=== PATIENT | female | born 1985 | race African-American/Black ===

== ENCOUNTER 2021-07-08 10:09 | Emergency (ER) | payer BC ==
[~2021-07-08] VITALS: Ht 175.3 cm; Wt 75.7 kg
--- NOTE | 2021-07-08 10:53 | NUR ---
BIBS FOR BEING DEPRESSED, SI +PLAN TO RUN INTO TRAFFIC. WANTS VOL PSYCH ADMISSION. THE PATIENT IS ALERT AND ORIENTED X3. DENIES PAIN. BREATHING EVEN AND UNLABORED. WILL CONTINUE TO MONITOR. SITTER AT THE BEDSIDE. SAFETY MEASURES TAKEN
[2021-07-08 11:06] LABS: BILIRUBIN,URINE NEGATIVE (NEGATIVE); COLOR,URINE YELLOW (YELLOW); LEUKOCYTE ESTERASE ,URINE NEGATIVE (NEGATIVE); NITRITE, URINE NEGATIVE (NEGATIVE); PROTEIN,URINE NEGATIVE (NEGATIVE); UGLUCOSE NEGATIVE (NEGATIVE); UROBILINOGEN,URINE 0.2 EU/dL (0.2)
[2021-07-08 11:11] LABS: BASOPHILS # (AUTO) 0.1 K/uL (0.0-0.2); BASOPHILS % (AUTO) 0.8 % (0.0-2.0); EOSINOPHILS % (AUTO) 3.2 % (0.0-6.0); HEMATOCRIT 36 % (33-45); HEMOGLOBIN 11.7 g/dL (11.5-14.8); LYMPHOCYTES # (AUTO) 1.8 K/uL (0.8-4.8); LYMPHOCYTES % (AUTO) 22.9 % (20.0-44.0); MEAN CORPUSCULAR HGB CONC 33 g/dl (31.0-36.0); MEAN CORPUSCULAR VOLUME 89 fL (82-100); MONOCYTES # (AUTO) 0.7 K/uL (0.1-1.30); MONOCYTES % (AUTO) 9.2 % (2.0-12.0); NEUTROPHILS % (AUTO) 63.9 % (43.0-81.0); PLATELET COUNT (AUTO) 479 K/uL (150-450); RED BLOOD CELL COUNT(AUTO) 4.04 MIL/uL (4.0-5.2); WHITE BLOOD COUNT (AUTO) 7.8 K/uL (4.3-11.0)
[2021-07-08 11:19] LABS: CALCIUM, SERUM 8.6 mg/dL (8.5-10.1); CARBON DIOXIDE 29 mmol/L (21-32); CHLORIDE 107 mmol/L (98-107); CREATININE 0.9 mg/dL (0.6-1.3); GLUCOSE 72 mg/dL (74-106); POTASSIUM 3.8 mmol/L (3.5-5.1); SODIUM SERUM 143 mmol/L (136-145); UREA NITROGEN, BLOOD 16 mg/dL (7-18)
[2021-07-08 11:21] LABS: BACTERIA,URINE None seen /HPF (None Seen); RBC,URINE NONE SEEN /HPF (0-2); SQUAMOUS EPITHELIAL CELL,UR Few /HPF (None Seen); WBC,URINE NONE SEEN /HPF (0-3)
[2021-07-08 11:27] LABS: ALANINE AMINOTRANSFERASE 20 U/L (12-78); ALBUMIN 3.2 g/dL (3.4-5.0); ALCOHOL, BLOOD < 3 mg/dL (0-0); ALKALINE PHOSPHATASE 77 U/L (46-116); ASPARTATE AMINOTRANSFERASE 15 U/L (15-37); BILIRUBIN,DIRECT 0.1 mg/dL (0.0-0.2); BILIRUBIN,TOTAL 0.1 mg/dL (0.2-1.0); TOTAL PROTEIN, SERUM 6.9 g/dL (6.4-8.2)
[2021-07-08 12:00] LABS: ACETAMINOPHEN < 10 ug/ml (10-30)
--- NOTE | 2021-07-08 12:57 | NUR ---
SOURAV faxed clinicals to [facility] [[address] [place] [id number] FAX:[phone]] for voluntary inpatient psychiatric treatment.
--- NOTE | 2021-07-08 14:24 | NUR ---
SS Consult: SS consult requested for SI drug abuse & possible homelessness. The pt. is a 35 year old Black female. Per EMR, the pt. has C/O SI wiht pln to run into traffic and admits to medication non compliance and requesting admission to [facility]. SW met with pt. bedside. The pt. is sleeping and not rousable to verbal cues. SW placed homeless waiver, homeless & addiction resources in chart for pt. upon discharge. SW will be available as needed.
--- NOTE | 2021-07-08 14:55 | NUR ---
FAXED CLINICALS TO [facility]
--- NOTE | 2021-07-08 15:01 | NUR ---
ROSIE CALLED FROM [facility] ACCEPTED UNDER DR. CARLISLE CALL [phone] FOR REPORT
--- NOTE | 2021-07-08 15:09 | NUR ---
[facility] CALLED ETA 60 MINS.
[2021-07-08 15:50] VITALS: BP 125/64
--- NOTE | 2021-07-08 16:03 | NUR ---
REPORT GIVEN TO ROSA MARCOS AT [facility]. PT TRANSPORTED TO [facility] IN STABLE CONDITION.
== END 2021-07-08 16:07 ==
LOC: ER 10:09
DX: R45.851 Suicidal ideations (principal); Z20.822 Contact with and (suspected) exposure to COVID-19; F20.9 Schizophrenia, unspecified; F31.9 Bipolar disorder, unspecified; Z59.0 Homelessness; J45.909 Unspecified asthma, uncomplicated; Z82.49 Family history of ischemic heart disease and other diseases of the circulatory system
CPT/HCPCS: 36415; 80048; 80076; 80143; 80307; 80320; 81001; 84703; 85025; 87426; 99285; C9803; G0480

== ENCOUNTER 2021-07-29 17:32 | Emergency (ER) | payer BC ==
[~2021-07-29] VITALS: Ht 175.3 cm; Wt 73.5 kg
[2021-07-29 19:52] LABS: BILIRUBIN,URINE Negative (NEGATIVE); COLOR,URINE YELLOW (YELLOW); LEUKOCYTE ESTERASE ,URINE Negative (NEGATIVE); NITRITE, URINE Negative (NEGATIVE); PH,URINE 5.5 (5.0-8.0); PROTEIN,URINE Trace mg/dl (NEGATIVE); UGLUCOSE Negative (NEGATIVE); UROBILINOGEN,URINE 0.2 EU/dL (0.2)
[2021-07-29 19:53] LABS: BACTERIA,URINE Rare /HPF (None Seen); RBC,URINE NONE SEEN /HPF (0-2); SQUAMOUS EPITHELIAL CELL,UR Few /HPF (None Seen); WBC,URINE NONE SEEN /HPF (0-3)
[2021-07-29 20:24] LABS: BASOPHILS % (AUTO) 0.5 % (0.0-2.0); EOSINOPHILS % (AUTO) 2.7 % (0.0-6.0); HEMATOCRIT 34 % (33-45); HEMOGLOBIN 11.1 g/dL (11.5-14.8); LYMPHOCYTES # (AUTO) 2.6 K/uL (0.8-4.8); LYMPHOCYTES % (AUTO) 29.2 % (20.0-44.0); MEAN CORPUSCULAR HGB CONC 33 g/dl (31.0-36.0); MEAN CORPUSCULAR VOLUME 85 fL (82-100); MONOCYTES # (AUTO) 1.1 K/uL (0.1-1.30); MONOCYTES % (AUTO) 11.8 % (2.0-12.0); NEUTROPHILS % (AUTO) 55.8 % (43.0-81.0); PLATELET COUNT (AUTO) 413 K/uL (150-450); RED BLOOD CELL COUNT(AUTO) 3.97 MIL/uL (4.0-5.2)
--- NOTE | 2021-07-29 20:37 | NUR ---
COVID SWAB SENT TO LAB
[2021-07-29 20:39] LABS: CALCIUM, SERUM 8.1 mg/dL (8.5-10.1); CARBON DIOXIDE 27 mmol/L (21-32); CHLORIDE 106 mmol/L (98-107); CREATININE 0.9 mg/dL (0.6-1.3); GLUCOSE 73 mg/dL (74-106); POTASSIUM 3.5 mmol/L (3.5-5.1); SODIUM SERUM 141 mmol/L (136-145); UREA NITROGEN, BLOOD 6 mg/dL (7-18)
[2021-07-29 20:45] LABS: ALANINE AMINOTRANSFERASE 42 U/L (12-78); ALBUMIN 2.8 g/dL (3.4-5.0); ALCOHOL, BLOOD < 3 mg/dL (0-0); ALKALINE PHOSPHATASE 77 U/L (46-116); ASPARTATE AMINOTRANSFERASE 48 U/L (15-37); BILIRUBIN,DIRECT 0.1 mg/dL (0.0-0.2); BILIRUBIN,TOTAL 0.2 mg/dL (0.2-1.0); TOTAL PROTEIN, SERUM 6.7 g/dL (6.4-8.2)
[2021-07-29 20:46] LABS: ACETAMINOPHEN < 2 ug/ml (10-30)
--- NOTE | 2021-07-29 22:33 | NUR ---
Patient is resting comfortably in bed with eyes closed. Easily aroused. VSS
--- NOTE | 2021-07-29 23:07 | NUR ---
CLINICALS FAXED TO [facility]
--- NOTE | 2021-07-30 00:42 | NUR ---
PT SLEEPING, EASILY AROUSABLE. VSS
--- NOTE | 2021-07-30 01:11 | NUR ---
ACCEPTED TO [facility] [address], DR CARLISLE. CALL REPORT [phone]
--- NOTE | 2021-07-30 01:15 | NUR ---
[facility] ETA [phone]
--- NOTE | 2021-07-30 01:33 | NUR ---
GAVE REPORT TO PRITI PANDEY FOR [facility]
[2021-07-30 02:30] VITALS: BP 115/77
--- NOTE | 2021-07-30 03:08 | NUR ---
f/u for eta, 10-15min
--- NOTE | 2021-07-30 03:21 | NUR ---
gave report to ems
== END 2021-07-30 03:35 ==
LOC: ER 17:33
DX: R45.851 Suicidal ideations (principal); J45.909 Unspecified asthma, uncomplicated; Z86.59 Personal history of other mental and behavioral disorders; Z20.822 Contact with and (suspected) exposure to COVID-19; F14.90 Cocaine use, unspecified, uncomplicated
CPT/HCPCS: 36415; 80048; 80076; 80143; 80307; 80320; 81001; 84703; 85025; 87426; 99285; C9803; G0480

== ENCOUNTER 2022-10-31 14:48 | Emergency (ER) | payer BC ==
[~2022-10-31] VITALS: Ht 175.3 cm; Wt 65.8 kg
--- NOTE | 2022-10-31 15:43 | NUR ---
URINE SAMPLE OBTAINED SENT TO LAB
[2022-10-31 16:24] LABS: BASOPHILS % (AUTO) 0.8 % (0.0-2.0); EOSINOPHILS % (AUTO) 4.9 % (0.0-6.0); HEMATOCRIT 38 % (33-45); HEMOGLOBIN 12.4 g/dL (11.5-14.8); LYMPHOCYTES % (AUTO) 15.6 % (20.0-44.0); MEAN CORPUSCULAR HGB CONC 33 g/dl (31.0-36.0); MEAN CORPUSCULAR VOLUME 89 fL (82-100); MONOCYTES # (AUTO) 0.8 K/uL (0.1-1.30); MONOCYTES % (AUTO) 12.8 % (2.0-12.0); NEUTROPHILS # (AUTO) 4.3 K/uL (1.8-8.9); NEUTROPHILS % (AUTO) 65.9 % (43.0-81.0); PLATELET COUNT (AUTO) 447 K/uL (150-450); RED BLOOD CELL COUNT(AUTO) 4.27 MIL/uL (4.0-5.2); WHITE BLOOD COUNT (AUTO) 6.6 K/uL (4.3-11.0)
--- NOTE | 2022-10-31 16:27 | NUR ---
COVID SWAB COLLECTED AND SENT TO LAB
[2022-10-31 16:31] LABS: BILIRUBIN,URINE NEGATIVE (NEGATIVE); COLOR,URINE YELLOW (YELLOW); LEUKOCYTE ESTERASE ,URINE NEGATIVE (NEGATIVE); NITRITE, URINE NEGATIVE (NEGATIVE); PROTEIN,URINE NEGATIVE (NEGATIVE); UGLUCOSE NEGATIVE (NEGATIVE); UROBILINOGEN,URINE 0.2 EU/dL (0.2)
[2022-10-31 16:39] LABS: CALCIUM, SERUM 8.3 mg/dL (8.5-10.1); CARBON DIOXIDE 29 mmol/L (21-32); CHLORIDE 103 mmol/L (98-107); CREATININE 0.9 mg/dL (0.6-1.3); GLUCOSE 60 mg/dL (74-106); POTASSIUM 3.8 mmol/L (3.5-5.1); SODIUM SERUM 139 mmol/L (136-145); UREA NITROGEN, BLOOD 13 mg/dL (7-18)
[2022-10-31 16:43] LABS: ALANINE AMINOTRANSFERASE 19 U/L (12-78); ALBUMIN 3.2 g/dL (3.4-5.0); ALCOHOL, BLOOD < 3 mg/dL (0-0); ALKALINE PHOSPHATASE 76 U/L (46-116); ASPARTATE AMINOTRANSFERASE 13 U/L (15-37); BILIRUBIN,DIRECT 0.1 mg/dL (0.0-0.2); BILIRUBIN,TOTAL 0.2 mg/dL (0.2-1.0); TOTAL PROTEIN, SERUM 7.2 g/dL (6.4-8.2)
--- NOTE | 2022-10-31 17:02 | NUR ---
ACCUCHECK BS 84MG/DL. DR CONDON MADE AWARE.
[2022-10-31 18:30] VITALS: BP 124/75
[2022-10-31 18:39] LABS: BACTERIA,URINE None seen /HPF (None Seen); CALCIUM OXALATE CRYSTALS,UR Few /HPF (None Seen); WBC,URINE 0-2 /HPF (0-3)
[2022-10-31 18:40] LABS: MUCUS,URINE Few /LPF (None Seen)
[2022-10-31] MEDS ORDERED: ACETAMINOPHEN 325 MG TABLET PO ONE (19:00)
[2022-10-31] MEDS ORDERED: ACETAMINOPHEN 325 MG TABLET ONE (19:07)
--- NOTE | 2022-10-31 19:17 | NUR ---
FACESHEET AND CLINICALS FAXED TO [facility].
--- NOTE | 2022-10-31 20:43 | NUR ---
CALL JUAN CARLOS WITH ETA TO [phone]
--- NOTE | 2022-10-31 21:23 | NUR ---
ACCEPTED TO [facility] BY DR MANZO, REPORT TO [phone]
--- NOTE | 2022-10-31 21:25 | NUR ---
[facility] CALLED ETA 20-30 MINUTES
--- NOTE | 2022-10-31 21:36 | NUR ---
REPORT GIVEN TO BARBARA JUDGE ROOM [id number]
--- NOTE | 2022-10-31 21:44 | NUR ---
REPORT GIVEN EMS AT BEDSIDE
== END 2022-10-31 21:55 ==
LOC: ER 14:51
DX: R45.851 Suicidal ideations (principal); E16.2 Hypoglycemia, unspecified; F31.9 Bipolar disorder, unspecified; F20.9 Schizophrenia, unspecified; J45.909 Unspecified asthma, uncomplicated; R82.5 Elevated urine levels of drugs, medicaments and biological substances; Z20.822 Contact with and (suspected) exposure to COVID-19
CPT/HCPCS: 99285; 85025; 80048; 80076; 84703; 81001; 36415; 82962; 87426; 80143; 80320; 80307; C9803; G0480

== ENCOUNTER 2025-07-21 17:39 | Emergency (ER) | payer BC, MEDICAID ==
[~2025-07-21] VITALS: Ht 175.3 cm; Wt 97.5 kg
[2025-07-21 18:26] VITALS: TEMP 98.5
[2025-07-21 18:52] LABS: PLATELET COUNT (AUTO) 322 K/uL (150-450); RED BLOOD CELL COUNT(AUTO) 4.02 MIL/uL (4.0-5.2); RED CELL DISTRIBUTION WIDTH 14.6 % (11.5-15.0); WHITE BLOOD COUNT (AUTO) 10.2 K/uL (4.3-11.0)
[2025-07-21 19:01] LABS: APPEARANCE,URINE CLEAR (CLEAR); BLOOD, URINE NEGATIVE Ery/uL (NEGATIVE); LEUKOCYTE ESTERASE ,URINE NEGATIVE (NEGATIVE); NITRITE, URINE NEGATIVE (NEGATIVE); UGLUCOSE NEGATIVE (NEGATIVE)
[2025-07-21 19:15] LABS: CALCIUM, SERUM 8.2 mg/dL (8.5-10.1); CREATININE 1.0 mg/dL (0.6-1.3); SODIUM SERUM 141 mmol/L (136-145); UREA NITROGEN, BLOOD 20 mg/dL (7-18)
[2025-07-21 19:17] LABS: AMPHETAMINE, URINE NEGATIVE (NEGATIVE); BARBITURATE, URINE NEGATIVE (NEGATIVE); BENZODIAZEPINE, URINE NEGATIVE (NEGATIVE); CANNABINOID, URINE NEGATIVE (NEGATIVE); OPIATE, URINE NEGATIVE (NEGATIVE)
[2025-07-21 19:18] LABS: ALCOHOL, BLOOD < 3 mg/dL (0-10); ASPARTATE AMINOTRANSFERASE 22 U/L (15-37); TOTAL PROTEIN, SERUM 6.4 g/dL (6.4-8.2)
[2025-07-21 19:19] LABS: COCCAINE, URINE POSITIVE (NEGATIVE)
[2025-07-21 21:56] LABS: PREGNANCY TEST URINE QUAL NEGATIVE (NEGATIVE)
[2025-07-22 01:06] VITALS: BP 104/68; O2SAT 98
== END 2025-07-22 01:27 ==
LOC: ER 17:44
DX: R45.851 Suicidal ideations (principal); F19.11 Other psychoactive substance abuse, in remission; J45.909 Unspecified asthma, uncomplicated; F19.10 Other psychoactive substance abuse, uncomplicated; F32.A Depression, unspecified; Z59.00 Homelessness unspecified; Z20.822 Contact with and (suspected) exposure to COVID-19
CPT/HCPCS: 36415; 80048-TC; 80076-TC; 84703-TC; 85025-TC; G0480